=== PATIENT | female | born 1980 | race Caucasian/White ===

== ENCOUNTER 2020-02-28 15:41 | Outpatient (REF) | payer BC, SELFPAY ==
[2020-03-02 23:17] LABS: Patient Race White; SARS-CoV-2 RNA Undetected (Undetected); SARS-CoV-2 Specimen Source Nasal
== END 2020-02-28 16:01 ==
LOC: NCHCN 15:41
PROVIDERS: PCP Nurse Practitioner Family; Visit Provider Nurse Practitioner Family
DX: R05 Cough (principal)
CPT/HCPCS: U0003

== ENCOUNTER 2020-03-13 16:20 | Outpatient (REF) | payer BC, SELFPAY ==
[2020-03-13 20:46] LABS: Hemoglobin A1C 5.7 % (<5.7)
[2020-03-13 20:48] LABS: Anion Gap 9.3 mmol/L (3-11); BUN 6 mg/dL (7-18); CO2 25.7 mmol/L (21.0-32.0); CREATININE 0.74 mg/dL (0.55-1.02); Calcium 8.5 mg/dL (8.5-10.1); Chloride 104 mmol/L (98-107); Glucose 101 mg/dL (74-106); Potassium 3.8 mmol/L (3.5-5.1); Sodium 139 mmol/L (136-145); TSH (W/Ref FT4) 1.59 uIU/mL (0.36-3.74)
== END 2020-03-13 16:40 ==
LOC: NCHCN 16:20
PROVIDERS: PCP Nurse Practitioner Family; Visit Provider Nurse Practitioner Family
DX: R42 Dizziness and giddiness (principal)
CPT/HCPCS: 80048; 83036; 84443

== ENCOUNTER 2020-03-21 11:01 | Outpatient (REF) | payer BC, SELFPAY ==
[2020-03-23 18:50] LABS: SARS-CoV-2 RNA Source Nasal/Nares
[2020-03-23 18:52] LABS: SARS-CoV-2 RNA Detected (NotDetected)
== END 2020-03-21 11:21 ==
LOC: NCHCN 11:01
PROVIDERS: PCP Nurse Practitioner Family; Visit Provider Nurse Practitioner Family
DX: Z20.828 Contact with and (suspected) exposure to other viral communicable diseases (principal)
CPT/HCPCS: U0003

== ENCOUNTER 2020-09-10 13:39 | Outpatient (REF) | payer BC, SELFPAY ==
[2020-09-10 16:41] LABS: Anion Gap 9.8 mmol/L (3-11); BUN 6 mg/dL (7-18); CO2 26.2 mmol/L (21.0-32.0); CREATININE 0.7 mg/dL (0.55-1.02); Calcium 8.6 mg/dL (8.5-10.1); Chloride 107 mmol/L (98-107); Glucose 97 mg/dL (74-106); Potassium 4.1 mmol/L (3.5-5.1); Sodium 143 mmol/L (136-145)
== END 2020-09-10 13:40 | disposition home or self-care (01) ==
LOC: NCHCN 13:39
PROVIDERS: PCP Nurse Practitioner Family; Visit Provider Nurse Practitioner Family
DX: I10 Essential (primary) hypertension (principal)
CPT/HCPCS: 80048

== ENCOUNTER 2020-09-21 19:45 | Outpatient (REF) | payer BC, SELFPAY | END 2020-09-21 19:46 | disposition home or self-care (01) | LOC: NCHCN 19:45 | PROVIDERS: PCP Nurse Practitioner Family; Visit Provider Physician Assistant | DX: J02.9 Acute pharyngitis, unspecified (principal) | CPT/HCPCS: 87070 ==

== ENCOUNTER 2020-11-21 18:31 | Outpatient (REF) | payer BC, SELFPAY ==
[2020-11-21 19:57] LABS: Bilirubin Negative (Negative); Blood Small (Negative); Clarity Sl Cloudy (Clear); Glucose Negative (Negative); Ketones Negative (Negative); Leukocyte Esterase Negative (Negative); Nitrite Positive (Negative); Specific Gravity >= 1.030 (1.005-1.025); Urobilinogen 0.2 EU/dL (Up TO 0.2)
[2020-11-21 20:08] LABS: Bacteria Many HPF (Negative); C & S Indicated? C&S Done As Ordered; Casts Negative LPF (Negative); Crystals Mod Calcium Oxalate HPF (Negative); Epithelial Cells Few HPF (Negative); Mucus Trace (Negative)
== END 2020-11-21 18:32 | disposition home or self-care (01) ==
LOC: NCHCN 18:31
PROVIDERS: PCP Nurse Practitioner Family; Visit Provider Nurse Practitioner Family
DX: R30.0 Dysuria (principal)
CPT/HCPCS: 87077; 81003; 81015; 87086; 87186

== ENCOUNTER 2020-12-03 12:50 | Outpatient (REF) | payer BC, SELFPAY | END 2020-12-03 12:51 | disposition home or self-care (01) | LOC: NCHCN 12:50 | PROVIDERS: PCP Nurse Practitioner Family; Visit Provider Nurse Practitioner Family | DX: R30.0 Dysuria (principal) | CPT/HCPCS: 87077; 87086; 87186 ==

== ENCOUNTER 2021-03-01 13:13 | Outpatient (REF) | payer BC, SELFPAY ==
[2021-03-03 10:41] LABS: COVID-19 RT-PCR UVMMC Result Negative (Negative)
== END 2021-03-01 13:14 | disposition home or self-care (01) ==
LOC: NCHCN 13:13
PROVIDERS: PCP Nurse Practitioner Family; Visit Provider Physician Assistant
DX: Z20.822 Contact with and (suspected) exposure to COVID-19 (principal); J40 Bronchitis, not specified as acute or chronic
CPT/HCPCS: U0003

== ENCOUNTER 2021-04-05 09:17 | Outpatient (REF) | payer BC, SELFPAY ==
[2021-04-05 18:55] LABS: Hemoglobin A1C 5.6 % (<5.7)
[2021-04-05 19:06] LABS: ALT 25 U/L (14-59); AST 17 U/L (15-37); Albumin 3.8 g/dL (3.4-5.0); Alkaline Phosphatase 88 U/L (46-116); Anion Gap 10.8 mmol/L (3-11); BUN 9 mg/dL (7-18); Bilirubin, Total 0.2 mg/dL (0.2-1.0); CO2 25.2 mmol/L (21.0-32.0); CREATININE 0.6 mg/dL (0.55-1.02); Calcium 8.5 mg/dL (8.5-10.1); Chloride 105 mmol/L (98-107); Glucose 80 mg/dL (74-106); Potassium 3.7 mmol/L (3.5-5.1); Sodium 141 mmol/L (136-145); TSH 1.34 uIU/mL (0.36-3.74); Total Protein 6.9 g/dL (6.4-8.2)
== END 2021-04-05 09:18 | disposition home or self-care (01) ==
LOC: NCHCN 09:17
PROVIDERS: PCP Nurse Practitioner Family; Visit Provider Nurse Practitioner Family
DX: R63.5 Abnormal weight gain (principal)
CPT/HCPCS: 80053; 83036; 84443

== ENCOUNTER 2022-05-27 19:17 | Outpatient (REF) | payer OTHER, SELFPAY ==
[2022-05-27 19:05] LABS: ALT 17 U/L (14-59); AST 17 U/L (15-37); Albumin 3.9 g/dL (3.4-5.0); Alkaline Phosphatase 72 U/L (46-116); Anion Gap 8.3 mmol/L (3-11); BUN 8 mg/dL (7-18); Bilirubin, Total 0.2 mg/dL (0.2-1.0); CO2 25.7 mmol/L (21.0-32.0); CREATININE 0.7 mg/dL (0.55-1.02); Calcium 9.3 mg/dL (8.5-10.1); Calculated LDL 121 mg/dL (<100); Chloride 104 mmol/L (98-107); Cholesterol 183 mg/dL (<200); Estimated GFR 110.67 (mL/min/1.73m2); Glucose 98 mg/dL (74-106); HDL Cholesterol 45 mg/dL (40-60); Potassium 4.1 mmol/L (3.5-5.1); Sodium 138 mmol/L (136-145); TSH 1.57 uIU/mL (0.36-3.74); Total Protein 7.4 g/dL (6.4-8.2); Triglyceride 88 mg/dL (<150)
[2022-05-27 20:50] LABS: Hemoglobin A1C 6.1 % (<5.7)
== END 2022-05-27 19:18 | disposition home or self-care (01) ==
LOC: NCHCN 19:17
PROVIDERS: PCP Nurse Practitioner Family; Visit Provider Nurse Practitioner Family
DX: I10 Essential (primary) hypertension (principal); R73.09 Other abnormal glucose; H02.61 Xanthelasma of right upper eyelid; H02.64 Xanthelasma of left upper eyelid
CPT/HCPCS: 80053; 80061; 83036; 84443

== ENCOUNTER 2023-01-01 18:52 | Outpatient (REF) | payer OTHER, SELFPAY ==
[2023-01-01 19:47] LABS: COMMENT (LAB VIEW ONLY) 203.83 mg/dL; PROTEIN 13.8 mg/dL; Prot/Crea Ur Ratio 0.06
== END 2023-01-01 18:53 | disposition home or self-care (01) ==
LOC: NCHCN 18:52
PROVIDERS: PCP Nurse Practitioner Family; Visit Provider Nurse Practitioner Family
DX: I10 Essential (primary) hypertension (principal); E11.65 Type 2 diabetes mellitus with hyperglycemia
CPT/HCPCS: 82565; 84156

== ENCOUNTER 2023-01-07 11:30 | Outpatient (REF) | payer OTHER, SELFPAY ==
[2023-01-07 20:57] LABS: Anion Gap 8.2 mmol/L (3-11); BUN 9 mg/dL (7-18); CO2 23.8 mmol/L (21.0-32.0); CREATININE 0.7 mg/dL (0.55-1.02); Calcium 8.6 mg/dL (8.5-10.1); Chloride 104 mmol/L (98-107); Estimated GFR 110.67 (mL/min/1.73m2); Glucose 146 mg/dL (74-106); Potassium 4.1 mmol/L (3.5-5.1); Sodium 136 mmol/L (136-145)
== END 2023-01-07 11:31 | disposition home or self-care (01) ==
LOC: NCHCN 11:30
PROVIDERS: PCP Nurse Practitioner Family; Visit Provider Nurse Practitioner Family
DX: I10 Essential (primary) hypertension (principal); E11.65 Type 2 diabetes mellitus with hyperglycemia
CPT/HCPCS: 80048

== ENCOUNTER 2023-10-05 12:31 | Outpatient (REF) | payer OTHER, SELFPAY ==
[2023-10-05 19:15] LABS: HCT 45.6 % (36.0-46.0); HGB 14.7 g/dL (11.2-15.7); MCH 25.5 pg (27.0-33.0); MCHC 32.2 % (32.0-36.0); MCV 79 fL (80-95); MPV 11.7 fL (8.0-11.0); Platelet Count 253 10^3/uL (130-400); RBC 5.76 10^6/uL (3.93-5.22); RDW 14.1 % (11.7-14.6); RDW-SD 40.5 fL; WBC 7.17 10^3/uL (4.4-10.8)
== END 2023-10-05 12:32 | disposition home or self-care (01) ==
LOC: NCHCN 12:31
PROVIDERS: PCP Nurse Practitioner Family; Visit Provider Nurse Practitioner Family
DX: K62.5 Hemorrhage of anus and rectum (principal)
CPT/HCPCS: 85027

== ENCOUNTER 2023-10-11 22:35 | Emergency (ER) | payer OTHER, SELFPAY ==
[2023-10-11 22:41] VITALS: BP 189/114; PULSE 91; RESP 16; TEMP 36.7; O2SAT 100
[2023-10-11 22:42] VITALS: BP 189/114; PULSE 85; O2SAT 99
[2023-10-11 22:45] VITALS: BP 211/93; PULSE 88
--- NOTE | 2023-10-11 22:45 | DI.CT_ITS ---
Exam(s) CT ABDOMEN PELVIS W EXAM: CT ABDOMEN PELVIS W CLINICAL HISTORY: pelvic and lower abdominal pain w/ rectal bleeding. TECHNIQUE: Imaging Protocol: Axial computed tomography images with coronal and sagittal reformatted images were created and reviewed CONTRAST MATERIAL: Intravenous: Omnipaque-350 100cc Oral: None COMPARISON: No exams were available for comparison FINDINGS: VISUALIZED LUNG BASES: No nodules nor pleural effusions evident. ABDOMEN: There is no ascites. LIVER: In the anterior aspect of the right hepatic lobe there is a subcapsular hypodense lesion measu ring approximately 3.5 x 1.5 cm. No other focal hepatic lesions. No dilated intrahepatic ducts. GALLBLADDER/BILIARY: The gallbladder surgically absent. CBD is not dilated. PANCREAS: No evidence of pancreatic mass nor dilatation of the pancreatic duct. SPLEEN: Spleen is not enlarged. No obvious intrasplenic lesions. Splenic and portal veins are paten t. ADRENALS: There are no significant adrenal masses. KIDNEYS:No cysts evident. No solid renal masses. No calculi nor hydronephrosis.. ABDOMINAL AORTA: Abdominal aorta is not enlarged. LYMPH NODES:There is no retroperitoneal nor paraaortic adenopathy. ABDOMINAL WALL: No evidence of significant anterior abdominal wall nor inguinal hernia. GI: There is no evidence of bowel obstruction, free air, nor abscess. PELVIS: GI: Appendix is not seen and may be surgically absent. No evidence of appendicitis.No evidence of si gmoid diverticulitis.No obvious colitis pattern. LYMPH NODES: There is no intrapelvic nor inguinal adenopathy. REPRODUCTIVE: Uterus and adnexal regions appear unremarkable. There is no free fluid in the pelvis. URINARY BLADDER: No calculi nor obvious masses evident OSSEOUS: No fractures and no significant osseous lesions. IMPRESSION: 1. There is a solitary subcapsular lesion in the anterior aspect the right hepatic lobe which measure s approximately 3.5 x 1.5 cm. Possibly hemangioma but cannot exclude more concerning pathology. Rec ommend follow-up contrast infused MRI of the abdomen using liver hemangioma protocol. 2. Gallbladder surgically absent. The biliary tree is not dilated. First read by [facility] Final report called by myself to ER physician 10/12/2023 9:10 a.m. RADIATION DOSE DELIVERED: 1,433.68mGy.cm Total DLP DATA REPOSITORY: All CT scans at this facility are submitted to the National Radiology Data Registry (NRDR) Dose Index Registry (DIR) with the [employer] (A[employer]). RADIATION OPTIMIZATION: All CT scans at this facility use at least one of these dose optimization te chniques: automated exposure control; mA and/or kV adjustment per patient size (includes targeted exa ms where dose is matched to clinical indication); or iterative reconstruction.
--- NOTE | 2023-10-11 22:54 | ED.GENADUL_ITS ---
Discharge Plan Disposition Patient Disposition: Home Condition: Good Discharge Details Chief Complaint: GenMedical Clinical Impression: Rectal bleeding Primary Care Provider: Cortney Mendiola ED Provider: Mitchell Yu Home Meds and New Rx's Prescriptions: No Action hydrochlorothiazide 12.5 mg tablet 12.5 mg PO DAILY Patient Comments: TAKE ONE TABLET BY MOUTH EVERY DAY Nexplanon 68 mg implant 1 implant subdermal ONCE Rx Instructions: as a single dose Discharge Instructions Instructions: Rectal Bleeding (ED) Additional Instructions: At this time your hemoglobin levels are normal, your blood tests are stable. Your CAT scan shows no evidence of tumor, mass, diverticulitis. I am concerned that you have potential mild bleeding from an internal hemorrhoid that we could not feel or from mild diverticulosis. However you still need a colonoscopy to definitively evaluate the bleeding scenario. Please follow-up closely with your surgeon for this. Please keep your stools soft, drink 8 to 10 cups of water per day. Take your daily MiraLAX that you are prescribed by your primary care provider. If you notice any worsening of your symptoms, or any new symptoms such as vomiting, diarrhea, fever, chills, shortness of breath, chest pain, numbness, weakness, or fainting , please return immediately to the emergency department for reevaluation. Please follow up with your primary care provider as soon as possible for reassessment and reevaluation. As always, it was a pleasure participating in your medical care today. Referrals: Cortney Mendiola NP [Primary Care Provider] - Max Walker MD [ [facility] STAFF PHYSICIAN] - [facility] General Date/Time Provider Initiated Documentation: 10/11/23 22:39 . HPI Narrative: 43-year-old female with past medical history of cholecystectomy, 2 C- sections, previous post incisional site hernia with repair, who presents today for rectal bleeding. Patient states that this is the third oc currence, first happened exactly 30 days ago which was a small amount of mucus- like clots, no pain. The second episode was on the third of this month which was 6 days ago which was also some clots and mucus. Today it occurred with some gas, and it was bright red blood. None of the episodes have occurred with stool. All have been painless. No burning or searing sensation. Patient denies any anal intercourse or rectal foreign bodies. She denies any nausea vomiting or diarrhea. Patient does admit to some mild abdominal achiness that has been present today. She has not had any other symptoms or complaints today. She did feel slightly bloated after eating a dessert earlier today and has felt bloated throughout the majority of the day. Family history is positive for diverticulitis, but no history of ulcerative colitis colon cancer or Crohn's disease. There is some concern for family history of IBS. Patient has no other complaints at this time. She is not on any anticoagulants. No known history of bleeding diatheses. No known history of hemorrhoids. Related Data Home Medications Medication Instructions Recorded Confirmed etonogestrel 68 mg subdermal 1 implant subdermal ONCE 10/11/23 10/11/23 implant (Nexplanon) hydrochlorothiazide 12.5 mg tablet 12.5 mg PO DAILY 10/11/23 10/11/23 Allergies Allergy/AdvReac Type Severity Reaction Status Date / Time latex Allergy Swelling/Ed Verified 10/11/23 23:52 brandy Penicillins Allergy Anaphylaxis Verified 10/11/23 23:52 General Stated Complaint: GenMedical DIANA: 3 Review of Systems All systems reviewed & are unremarkable except as noted in HPI and below Exam Narrative Exam Narrative: 1.Const: Well-nourished, Well-developed, appearing stated age 2.Eyes: PERRL, no conjunctival injection, and symmetrical lids. 3.ENT: Atraumatic external nose and ears. Moist MM. Neck: Symmetric, trachea midline, No thyromegaly. 4.CVS: +S1/S2, No murmurs or gallops. Peripheral pulses 2+ and equal in all extremities. Brisk capillary refill in all extremities. 5.RESP: Unlabored respiratory effort. Clear to auscultation bilaterally. No wheezes rales or rhonchi 6.GI: Soft, nondistended. No guarding or rebound. Mild tenderness in the lower abdominal/pelvic region on the left right and mid. No pain to McBurney's point, negative Elizabeth sign. 7.MSK: Normocephalic/Atraumatic, Extremities w/o deformity or ttp No cyanosis or clubbing, Normal movement of all extremities 8.Skin: Warm, Dry. No rashes or lesions. 9.Neuro: vitamin manager II-XII grossly intact. Sensation grossly intact, no focal neurologic deficits. 10.Psych: (AAO) x3. Appropriate mood and affect Course Vital Signs Vital signs: Vital Signs Temperature 36.7 C 10/11/23 22:41 Pulse 91 H 10/11/23 22:41 Respiratory Rate 16 10/11/23 22:41 Blood Pressure 189/114 H 10/11/23 22:41 Pulse Oximetry 100 10/11/23 22:41 Temperature 36.7 C 10/11/23 22:41 Pulse 91 H 10/11/23 22:41 Respiratory Rate 16 10/11/23 22:41 Blood Pressure 189/114 H 10/11/23 22:41 Pulse Oximetry 100 10/11/23 22:41 Oxygen Delivery Method Room Air 10/11/23 22:41 Oxygen Flow Rate 0 10/11/23 22:41 Medical Decision Making 43-year-old female with past medical history of cholecystectomy, 2 C- sections, previous post incisional site hernia with repair, who presents today for rectal bleeding. Patient states that this is the third occurrence, first happened exactly 30 days ago which was a small amount of mucus-like clots, no pain. The second episode was on the third of this month which was 6 days ago which was also some clots and mucus. Today it occurred with some gas, and it was bright red blood. None of the episodes have occurred with stool. All have been painless. No burning or searing sensation. Patient denies any anal intercourse or rectal foreign bodies. She denies any nausea vomiting or diarrhea. Patient does admit to some mild abdominal achiness that has been present today. She has not had any other symptoms or complaints today. She did feel slightly bloated after eating a dessert earlier today and has felt bloated throughout the majority of the day. Family history is positive for diverticulitis, but no history of ulcerative colitis colon cancer or Crohn's disease. There is some concern for family history of IBS. Patient has no other complaints at this time. She is not on any anticoagulants. No known history of bleeding diatheses. No known history of hemorrhoids. Exam demonstrates well-appearing female, mild abdominal achiness in the pelvic and lower abdominal region. Concern for diverticulitis, diverticulosis, colon cancer, bleeding polyp, proctitis, and potential hemorrhoid. Will get blood work to evaluate for coagulation abnormalities, thrombocytopenia, or other atypical causes. We will check hemoglobin level. Will get a CT scan to rule out infectious or inflammatory or masslike process. Will monitor closely and reassess. We will perform rectal exam once patient is changed and female nurse can be at bedside. 12:35 AM Laboratory has returned unremarkable, hemoglobin notably stable. CT scan negative for acute process. Rectal exam was performed with female nurse Jennifer at bedside. No active bleeding. There was what appears to be a small lipoma on 1 gluteal cleft, and another potentially old varicocele or lipoma on the other. These are chronic. No large hemorrhoids otherwise. No active bleeding on rectal exam. Hemoccult negative. No large internal hemorrhoid that I can palpate. No mass or tenderness. Patient is otherwise hemodynamically stable. Suspect either an internal hemorrhoid that I cannot palpate or potential mild diverticular bleed which appears to be relatively benign at this stage. Polyp may certainly have caused this bleeding as well, and we will still encourage continued follow-up at her scheduled colonoscopy appointment. Patient otherwise stable for discharge. She has MiraLAX that was prescribed by her PCP. Will recommend continue taking this, drinking 8 to 10 cups of water at minimum per da y. And keeping her stool soft. Discussed red flags which to return. I have extensively reviewed the treatment plan and discharge instructions with the patient. I have addressed all patient concerns at this time. The patient was made aware of what symptoms to monitor for that would warrant a return to the emergency department. Discussed the plan with the patient, they demonstrate verbal understanding and agreement with our assessment and plan at this time. The documentation in this chart was dictated using [employer] dictation software. Please excuse any dictation errors. FINDINGS: Liver: Normal. No mass. Gallbladder and bile ducts: Status post cholecystectomy. Pancreas: Normal. No ductal dilation. Spleen: Normal. No splenomegaly. Adrenal glands: Normal. No mass. Kidneys and ureters: Normal. No hydronephrosis. Stomach and bowel: Unremarkable. No obstruction. No mucosal thickening. Appendix: No evidence of appendicitis. Intraperitoneal space: Unremarkable. No free air. No significant fluid collection. Vasculature: Unremarkable. No abdominal aortic aneurysm. Lymph nodes: Unremarkable. No enlarged lymph nodes. Urinary bladder: Unremarkable as visualized. Reproductive: Unremarkable as visualized. Bones/joints: Unremarkable. No acute fracture. Soft tissues: Fat containing midline anterior pelvic wall ventral hernia. IMPRESSION: No acute finding. Thank you for allowing us to participate in the care of your patient. Dictated and Authenticated by: Tomasz Jaquez MD 10/12/2023 12:06 AM Eastern Time ([place] & [place]) Quality:SDOH Health Related Social Needs: No Data to Display PFSH All Active Problems (Updated 10/12/23 @ 00:35 by Mitchell Yu DO) Rectal bleeding (Acute) Sebaceous cyst (Acute) BMI 40.0-44.9, adult (Acute) Incisional hernia (Acute) Varicose vein of leg (Acute) Palpitations (Acute) Hypertension, benign essential, age 0-18 (Acute) Tobacco use disorder (Acute) Adjustment disorder with mixed anxiety and depressed mood (Acute) Personal history of COVID-19 (Acute) Knee pain, left (Acute) Pharyngitis, acute (Acute) Social History Smoking/Tobacco Use Status: Current every day Tobacco Type: e-cigarettes Smoking risk assessment performed?: Yes Alcohol Intake: current Alcohol Intake frequency: holidays/special occasions only Drug use: Never Substance use type: does not use
[2023-10-11] MEDS: Omnipaque 350 MG/ML 100 ML BTL IJ (23:03)
[2023-10-11] MEDS: Normal Saline - Diluent 50 ML VIAL IJ (23:03)
[2023-10-11 23:10] LABS: Abs Immature Grans 0.04 10^3/uL (0.0-0.06); Absolute Basophil Count 0.04 10^3/uL (0.0-0.2); Absolute Eosinophil Count 0.11 10^3/uL (0.0-0.7); Absolute Lymphocyte Count 2.25 10^3/uL (1.2-3.4); Absolute Monocyte Count 0.55 10^3/uL (0.1-0.8); Basophils % 0.4 %; HCT 45.4 % (36.0-46.0); HGB 14.3 g/dL (11.2-15.7); Immature Grans % 0.4 %; Lymphocytes % 20.1 %; MCH 25.7 pg (27.0-33.0); MCHC 31.5 % (32.0-36.0); MCV 82 fL (80-95); MPV 10.7 fL (8.0-11.0); Monocytes % 4.9 %; Neutrophils % 73.2 %; Platelet Count 244 10^3/uL (130-400); RBC 5.56 10^6/uL (3.93-5.22); RDW 14.1 % (11.7-14.6); RDW-SD 41.4 fL; WBC 11.18 10^3/uL (4.4-10.8)
[2023-10-11] MEDS: Normal Saline Flush 10 ML SYR IVP (23:10)
[2023-10-11 23:11] LABS: Absolute Neutrophil Count 8.18 10^3/uL (1.2-6.7)
[2023-10-11 23:23] LABS: PTT Activated 25.9 sec (23.6-32.8); Prothrombin Time 9.8 sec (9.1-11.1)
[2023-10-11 23:37] LABS: ALT 26 U/L (14-59); AST 15 U/L (15-37); Albumin 3.7 g/dL (3.4-5.0); Alkaline Phosphatase 90 U/L (46-116); Anion Gap 11.1 mmol/L (3-11); BUN 10 mg/dL (7-18); Bilirubin, Total 0.2 mg/dL (0.2-1.0); CO2 25.9 mmol/L (21.0-32.0); CREATININE 0.7 mg/dL (0.55-1.02); Calcium 8.9 mg/dL (8.5-10.1); Chloride 102 mmol/L (98-107); Estimated GFR 109.98 (mL/min/1.73m2); Glucose 109 mg/dL (74-106); Potassium 3.4 mmol/L (3.5-5.1); Sodium 139 mmol/L (136-145); Total Protein 7.4 g/dL (6.4-8.2)
[2023-10-11] MEDS: Normal Saline 1,000 ML 1000 ML IV (23:38)
[2023-10-11 23:55] VITALS: RESP 16
--- NOTE | 2023-10-12 00:07 | DI.VRAD_ITS ---
PROCEDURE INFORMATION: Exam: CT Abdomen And Pelvis With Contrast Exam date and time: 10/11/2023 11:09 PM Age: 43 years old Clinical indication: Localized; Prior surgery; Surgery date: 6+ months; Surgery type: 2 c-sections, cholecystectomy; Patient HX: Pelvic and lower abdominal pain w/ rectal bleeding TECHNIQUE: Imaging protocol: Computed tomography of the abdomen and pelvis with contrast. Radiation optimization: All CT scans at this facility use at least one of these dose optimization techniques: automated exposure control; mA and/or kV adjustment per patient size (includes targeted exams where dose is matched to clinical indication); or iterative reconstruction. Contrast material: OMNIPAQUE 350; Contrast volume: 100 ml; Contrast route: INTRAVENOUS (IV); COMPARISON: No relevant prior studies available. FINDINGS: Liver: Normal. No mass. Gallbladder and bile ducts: Status post cholecystectomy. Pancreas: Normal. No ductal dilation. Spleen: Normal. No splenomegaly. Adrenal glands: Normal. No mass. Kidneys and ureters: Normal. No hydronephrosis. Stomach and bowel: Unremarkable. No obstruction. No mucosal thickening. Appendix: No evidence of appendicitis. Intraperitoneal space: Unremarkable. No free air. No significant fluid collection. Vasculature: Unremarkable. No abdominal aortic aneurysm. Lymph nodes: Unremarkable. No enlarged lymph nodes. Urinary bladder: Unremarkable as visualized. Reproductive: Unremarkable as visualized. Bones/joints: Unremarkable. No acute fracture. Soft tissues: Fat containing midline anterior pelvic wall ventral hernia. IMPRESSION: No acute finding. Dictated and Authenticated by: Tomasz Jaquez MD. Ordering:JAMES Medrano MD
[2023-10-12 00:47] VITALS: BP 186/90; PULSE 86; RESP 14; O2SAT 99
--- NOTE | 2023-10-12 09:30 | W.ED.FU ---
Date of service: 10/12/23 Time of Service: 09:31 Follow Up Plan: Subcapsular lesion 1.5 x 3.[address] scan abdomen. Over read called this morning to ED. I was able to contact patient and relay findings from CT scan. Recommending close follow-up on outpatient basis with primary care physician to perform further imaging to delineate liver findings. Radiology recommending follow-up contrast infused MRI using a liver hemangioma protocol. Patient given return precautions for any worsening symptoms.
== END 2023-10-12 00:47 | disposition home or self-care (01) ==
LOC: ER 10-12 00:56
PROVIDERS: Emergency Provider Student in an Organized Health Care Education/Training Program; PCP Nurse Practitioner Family
DX: K62.5 Hemorrhage of anus and rectum (principal); K76.9 Liver disease, unspecified; I10 Essential (primary) hypertension; F17.290 Nicotine dependence, other tobacco product, uncomplicated
CPT/HCPCS: 80053; 86850; 86900; 86901; 96360; 99285; 74177; 85025; 85610; 85730; 99284; J3490

== ENCOUNTER 2023-10-26 11:17 | Day surgery (SDC) | payer OTHER, SELFPAY ==
--- NOTE | 2023-10-25 19:39 | PDOC.DSDIS_ITS ---
Date of service: 10/26/23 Time of Service: 13:44 Discharge Plan Disposition Patient Disposition: Home Condition: Good Discharge Details Reason For Visit: colonoscopy Attending Provider: Max Walker Primary Care Provider: Isabel Gregg Home Meds and New Rx's Prescriptions: Continued polyethylene glycol 3350 [Miralax] 17 gram/dose powder 8.5 g PO HS PRN hydrochlorothiazide 12.5 mg tablet 12.5 mg PO DAILY Patient Comments: TAKE ONE TABLET BY MOUTH EVERY DAY Nexplanon 68 mg implant 1 implant subdermal ONCE Rx Instructions: as a single dose Discontinued bisacodyl [Dulcolax (bisacodyl)] 5 mg tablet,delayed release (DR/EC) 5 mg PO ONCE Qty: 4 0RF Rx Instructions: Take per colonoscopy instructions provided by ordering providers office polyethylene glycol 3350 17 gram/dose powder 17 g PO ONCE Qty: 238 0RF Rx Instructions: Take per colonoscopy instructions provided by ordering providers office No Action psyllium husk (aspartame) [Metamucil Sugar-Free (aspart)] PO HS Discharge Instructions Instructions: Colon polyps Additional Instructions: Annabelle, we are able to complete your colonoscopy today without much difficulty. There are no internal hemorrhoids. I did find and remove several polyps today. Majority of these are pretty typical appearing, however, he did have 1 large polyp, that was quite friable. I suspect that this is the source of your blee ding. In addition to the smaller polyps, I did remove the larger polyp as well. So in total, I removed 6 polyps. All of these will be sent off for testing, and once we know the nature of the polyps, I will be in touch with any other recommendations. If you have any questions or concerns in the meantime, please do not hesitate to call or ask. It usually takes about a week or 2 for me to get the results of the polyp report. As soon as I have them I we will give you a call. 1. If tolerated, consume a soft, low fiber diet for 1-2 days. 2. Do not drive, drink alcohol, operate machinery, make critical decisions, or do activities that require coordination or balance for 24 hours. 3. Because air was put into your colon during the procedure, expelling air from your rectum (passing gas or farting) is normal. 4. You may not have a bowel movement for 1-3 days because of the colonoscopy prep. This is normal. 5. Go directly to the emergency room if you notice any of the following: Develop chills (warm to touch), or if you have a thermometer and your temperature is above 101 Difficulty breathing or difficultly swallowing Persistent vomiting Severe abdominal pain, other than gas cramps Severe chest pain Black, tarry stools Any bleeding ? exceeding one tablespoon 6. Call your physician if the site where your intravenous was started becomes red, swollen, painful, and warm to touch. 7. Your physician has reviewed your pre-procedure medications. Please continue to take those medications as previously ordered. You will be given specific information/education regarding any changes to your medications before leaving. Activity:: Activity as Tolerated Diet:: As Tolerated Discharge Orders Discharge Orders: Discharge Order (Routine); Ordered 10/25/23 Ordered By: Max Walker DS: Diagnosis Discharge Diagnosis (1) Rectal bleeding: Status: Acute Asessment and Plan: Follow-up on polypectomy results
--- NOTE | 2023-10-25 19:41 | W.COLOREPORT ---
Date of service: 10/26/23 Time of Service: 13:47 Colonoscopy Report Date of procedure: 10/26/23 Pre-op diagnosis general: Hematochezia Post-op diagnosis procedure note: other (Colon and rectal polyps) Procedure: Colonoscopy with polypectomy Surgeon: Max Walker Anesthesia Type: General:No Airway Estimated blood loss (mL): 10 Pathology: other (0.25 cm rectal polyp, 0.5 cm rectal polyp, 3 cm polyp at 45 cm, 0.25 cm polyp at 70 cm, 0.5 cm polyp at 65 cm, 0.25 cm polyp at 25 cm) Complications: None Disposition: same day Indications: Annabelle is a 43 year old woman who experianced rectal bleeding of unknown etiology. She is undergoing diagnostic colonoscopy Prep: Miralax/Dulcolax Procedure Start Time: 12:57 Procedure End Time: 13:31 Retraction Time: 16 Findings: 0.25 cm rectal polyp, 0.5 cm rectal polyp, 3 cm polyp at 45 cm, 0.25 cm polyp at 70 cm, 0.5 cm polyp at 65 cm, 0.25 cm polyp at 25 cm Procedure Description: After the induction of anesthesia, and with the patient in left lateral decubitus position, I began by performing an external anorectal exam.? Perineum and skin were normal, as was the anal verge.? There was no evidence of external hemorrhoids.? Next, I performed a digital rectal exam.? I did not appreciate any abnormal findings.? Next, I advanced a colonoscope into the rectal vault.? I performed retroflexion.? This was normal.? Using insufflation, I then advanced the colonoscope beyond the rectal folds and into the sigmoid colon before advancing towards the cecum.? Around 45 cm from the anal verge was a large pedunculated polyp. Mucosa overlying the polyp tissue was quite erythematous and friable. This polyp was removed with a energize snare polypectomy. There was minimal bleeding. I continued advancing the colonoscope.? The scope was noted to be in the cecum by identification of the ileocecal valve and appendiceal orifice.? I then began withdrawing the colonoscope using repeated irrigation as necessary for full evaluation of the colonic mucosa. Around 70 cm from the anal verge was a 0.25 cm flat polyp. This was removed with cold forceps without any significant bleeding. Another polyp was found at 65 cm. This was about 0.5 cm, and mostly flat. This was removed with cold snare polypectomy. A 0.25 cm flat polyp was found at 25 cm. This was removed with cold forceps. Once the scope was withdrawn to the level of the rectum, great care was taken to examine portions of the rectal folds.? In the midportion of the rectum or 2 more polyps. 1 was 0.25 cm and flat. The other was about 0.5 cm, slightly elevated. The smaller of the 2 was removed with cold forceps without any worrisome bleeding, and the larger was removed with cold snare polypectomy. Finally, the scope was withdrawn and the patient was brought to the same-day surgery recovery unit as the anesthetic wore off. ?The findings and instructions were shared with the patient prior to discharge. [place] Bowel Prep [place] Bowel Prep Right Colon: 3 Left Colon: 3 Transverse Colon: 3 Total Score: 9
[2023-10-26 11:40] VITALS: BP 134/75; PULSE 94; RESP 20; TEMP 36.6; O2SAT 100
--- NOTE | 2023-10-26 12:37 | W.ANESPRE ---
General Info Date of Service Date Performed: 10/26/23 Height: 5 ft 7 in Weight: 117.3 kg Body Mass Index (BMI): 40.5 Surgical Procedure: Operation Date: 10/26/23 13:40 Proposed Procedure Side Surgeon p Colonoscopy Max Walker MD s Possible Internal Hemorrhoid Banding Max Walker MD Meds Allergies and Home Medications Allergies Allergy/AdvReac Type Severity Reaction Status Date / Time latex Allergy Swelling/Ed Verified 10/26/23 12:15 brandy Penicillins Allergy Anaphylaxis Verified 10/26/23 12:15 Home Medication Medication Instructions Recorded etonogestrel 68 mg subdermal 1 implant subdermal ONCE 10/11/23 implant (Nexplanon) hydrochlorothiazide 12.5 mg tablet 12.5 mg PO DAILY 10/11/23 polyethylene glycol 3350 17 8.5 g PO HS PRN 10/22/23 gram/dose oral powder (Miralax) psyllium husk (aspartame) PO HS 10/26/23 Current Visit Medications: Current Medications Generic Name Dose Route Start Last Admin Trade Name Freq PRN Reason Stop Dose Admin Hyoscyamine Sulfate 0.125 mg 10/25/23 19:42 Hyoscyamine 0.125 Mg Sl/Oral/Chew SL 11/24/23 19:41 DIRECTED PRN Ringer's Solution 1,000 mls @ 80 mls/hr 10/26/23 06:00 IV 11/22/23 23:59 INFUSION HERNANDO IV Miscellaneous Supplies 1 each 10/26/23 06:00 Iv Access IV 11/22/23 23:59 DIRECTED HERNANDO Ondansetron HCl 4 mg 10/25/23 19:42 Ondansetron 4 Mg/2 Ml Vial IVP 11/24/23 19:41 Q4H PRN PRN Nausea / Vomiting Sodium Chloride 0 ml 10/26/23 06:00 Normal Saline Flush 10 Ml Syr IV 11/22/23 23:59 PRN PRN Sodium Chloride 0 ml 10/26/23 06:00 Normal Saline 10 Ml Vial IJ 11/22/23 23:59 DIRECTED PRN Sterile Water 0 ml 10/26/23 06:00 Water,Injection,Sterile 10 Ml Vial IJ 11/22/23 23:59 DIRECTED PRN PFSH Active Problems Active Problems: Problem Status Onset Code Rectal bleeding K62.5 Sebaceous cyst L72.3 BMI 40.0-44.9, adult Z68.41 Incisional hernia K43.2 Varicose vein of leg I83.90 Palpitations R00.2 Hypertension, benign essential, age 0-18 I10 Tobacco use disorder F17.200 Adjustment disorder with mixed anxiety and depressed mood F43.23 Personal history of COVID-19 Z86.16 Knee pain, left M25.562 Pharyngitis, acute J02.9 Medical History Medical History (Updated 10/26/23 @ 12:23 by Charmaine Dominguez) PONV (postoperative nausea and vomiting) Surgical History Surgical History (Updated 10/22/23 @ 14:12 by Madhav Williamson) Hx of section x2 History of repair of ACL Hx of vein stripping Hx of cholecystectomy Tobacco Smoking/Tobacco Use Status: Current every day Tobacco Type: e-cigarettes Alcohol Alcohol Intake: current Alcohol intake frequency: a few times a month Substance Use Substance use: Occasionally Substance use type: marijuana Vital Signs and Lab Results Vital Signs Most Recent Vital Signs in EMR: Most Recent Vital Signs Temp Pulse Resp BP Pulse Ox 36.6 C 94 H 20 134/75 100 10/26/23 11:40 10/26/23 11:40 10/26/23 11:40 10/26/23 11:40 10/26/23 11:40 Lab Results Blood Type / Crossmatch: Antibody Screen NEGATIVE 10/11/23 Complete Blood Count: White Blood Count 11.18 10^3/uL (4.4-10.8) H 10/11/23 23:00 Red Blood Count 5.56 10^6/uL (3.93-5.22) H 10/11/23 23:00 Hemoglobin 14.3 g/dL (11.2-15.7) 10/11/23 23:00 Hematocrit 45.4 % (36.0-46.0) 10/11/23 23:00 Platelet Count 244 10^3/uL (130-400) 10/11/23 23:00 Complete Metabolic Panel: Sodium 139 mmol/L (136-145) 10/11/23 23:00 Potassium 3.4 mmol/L (3.5-5.1) L 10/11/23 23:00 Chloride 102 mmol/L (98-107) 10/11/23 23:00 Carbon Dioxide 25.9 mmol/L (21.0-32.0) 10/11/23 23:00 BUN 10 mg/dL (7-18) 10/11/23 23:00 Creatinine 0.7 mg/dL (0.55-1.02) 10/11/23 23:00 Est GFR (CKD-EPI 2020) 109.98 (mL/min/1.73m2) 10/11/23 23:00 Calcium 8.9 mg/dL (8.5-10.1) 10/11/23 23:00 Albumin 3.7 g/dL (3.4-5.0) 10/11/23 23:00 Glucose 109 mg/dL (74-106) H 10/11/23 23:00 Liver Function Panel: Alanine Aminotransferase (ALT/SGPT) 26 U/L (14-59) 10/11/23 23:00 Aspartate Amino Transf (AST/SGOT) 15 U/L (15-37) 10/11/23 23:00 Coagulation Panel: INR International Normalized Ratio 1.0 (0.9-1.1) 10/11/23 23:00 Prothrombin Time 9.8 sec (9.1-11.1) 10/11/23 23:00 Activated Partial Thromboplast Time 25.9 sec (23.6-32.8) 10/11/23 23:00 Cardiac Panel: No Data to Display Arterial Blood Gas: No Data to Display Venous Blood Gas: No Data to Display Pancreas Panel: No Data to Display Thyroid Panel: No Data to Display Infectious Disease: No Data to Display Blood Cultures: No Data to Display Toxicology Panel: No Data to Display Panel: No Data to Display Anesthesia Assessment and Plan Anesthesia History Personal History: PONV Family History: No Family History of Anesthesia Complications Exercise Tolerance Exercise Tolerance: Metabolic Equivalents>4 Pertinent Negatives Pertinent Negatives: No Symptoms of GERD, No Major Cardiovascular Symptoms or Complaints, No Major Pulmonary Symptoms or Complaints and No History of CVA/TIA Cardiac & Pulmonary Exam Cardiac Exam: Normal S1/S2 Heart Sounds Pulmonary Exam: Clear Bilateral Breath Sounds Implantable Cardiac Device Does patient have a Pacemaker or an ICD?: No Airway Exam Known Difficult Airway: No Mallampati Class: 1 Mouth Opening: Normal (> 3cm) Thyromental Distance: Greater than 3 cm Neck Range of Motion: Full ROM Neck Circumference: Normal Teeth Condition: Normal Dentition ASA Classification ASA Score: ASA 3 Emergency Case?: No NPO Status NPO Status: NPO Clears >2 hours, Solids >8 hours Status Status: Negative HCG Anesthesia Plan Resuscitation Status: Full Code Anesthesia Technique: General Anesthesia Airway Planned: Natural Airway Monitors Used: Standard Monitors
[2023-10-26 12:39] VITALS: BMI 40.5
[2023-10-26] MEDS: Lactated Ringers 1,000 ML 80 ML IV (12:45)
--- NOTE | 2023-10-26 12:59 | BOWEL_PTH ---
PATIENT: Annabelle Anderson LOC: [facility] U#:[id number] AGE/SX: 43/F ROOM: RE10/26/[address]: Max Walker MD : 1980 BED: DIS: 10/26/2023 SPEC #: [id number] RECD: 10/26/23 18:00 STATUS: [facility] #: [id number] JOSE: 10/26/23 12:[address]: Max Walker DEPT: Surgical Specimen RECD BY: Deepika Peterson ENTERED: 10/26/23 18:01 SP TYPE: Bowel OTHR DR: Marietta Gregg Tissues: 1 - BIOPSY BOWEL 2 - BIOPSY BOWEL 3 - BIOPSY BOWEL 4 - BIOPSY BOWEL 5 - BIOPSY BOWEL 6 - BIOPSY BOWEL Procedures: GROSS AND MICRO LEVEL 4 Comments: [id number]
[2023-10-26 13:36] VITALS: BP 126/86; PULSE 86; RESP 16; TEMP 36.4; O2SAT 99
[2023-10-26 14:01] VITALS: BP 136/93; PULSE 70; RESP 16; TEMP 36.6; O2SAT 99
--- NOTE | 2023-10-26 14:04 | W.ANESPOSTOP ---
Postoperative Evaluation Date, Time and Location Date Performed: 10/26/23 Time Performed: 14:04 Patient Location: Day [facility] Unit Vital Signs Most Recent Imported Vital Signs: Most Recent Vital Signs Temp Pulse Resp BP Pulse Ox 36.6 C 70 16 136/93 H 99 10/26/23 14:01 10/26/23 14:01 10/26/23 14:01 10/26/23 14:01 10/26/23 14:01 Pain Score Most Recent Pain Score: Most Recent Pain Score Pain Level 0 10/26/23 14:01 Assessment Mental Status: Awake (Alert & Oriented to Patient Baseline) Airway and Respiratory Function: Patent airway with normal (patient baseline) respiratory exam Cardiovascular Function: Hemodynamically Stable Hydration Status: Adequately Hydrated Nausea & Vomiting: No Nausea or Vomiting Pain: Pt. Denies Any Pain Peripheral Nerve Block: Patient did not receive a nerve block
== END 2023-10-26 14:14 | disposition home or self-care (01) ==
LOC: SUR 11:18
PROVIDERS: PCP Nurse Practitioner Family; Visit Provider Surgery
PROC: 0DJD8ZZ Inspection of Lower Intestinal Tract, Via Natural or Artificial Opening Endoscopic (ICD-10-PCS; CPT 45378; principal; 2023-10-26 13:30)
DX: K62.5 Hemorrhage of anus and rectum (principal); I10 Essential (primary) hypertension; D37.4 Neoplasm of uncertain behavior of colon; D12.8 Benign neoplasm of rectum; D12.4 Benign neoplasm of descending colon
CPT/HCPCS: 45385; 45380; 88305; J2371; J2704

== ENCOUNTER → 2023-10-30 00:10 | Outpatient (CLI) | payer OTHER, SELFPAY ==
--- NOTE | 2023-10-30 | DI.MRI_ITS ---
Exam(s) MR ABDOMEN WO/W EXAM: MR ABDOMEN WO/W CLINICAL HISTORY: LESION OF LIVER, K76.9 TECHNIQUE: Multiplanar multisequence MRI of the Abdomen was performed. CONTRAST MATERIAL: IV Contrast: 20 mL of Dotarem contrast administered. COMPARISON: CT CT ABDOMEN PELVIS W from 10/11/2023 FINDINGS: Liver: There is a well-circumscribed subcapsular lesion in the anterior aspect of the liver measuring 4.1 cm transverse by 1.4 cm AP. It is hyperintense on the T2 weighted images. It is very mildly hy pointense on the T1 weighted images. Following contrast administration on the arterial images the les ion is only faintly hypoechoic relative to the parenchyma. This is similar to the precontrast examina tion. Relative to the rest of the hepatic parenchyma, it is most hypointense on the venous phase imag es. Though it remains hypointense, it becomes less hypointense to the rest of the parenchyma on the d elayed images. Pancreas: Unremarkable. No evidence of a pancreatic mass. Gallbladder and Bile Ducts: Status post cholecystectomy. No biliary ductal dilatation. Adrenals: Unremarkable. Kidneys: The visualized portions of the kidneys are unremarkable. Spleen: Unremarkable. 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 Bowel: Unremarkable. No evidence of bowel obstruction or bowel wall thickening. Aorta: Unremarkable. Soft Tissues: Unremarkable. Bone: Unremarkable. Lymph Nodes: Unremarkable. IMPRESSION: Solitary subcapsular hepatic lesion as described above. This corresponds to the finding on the CT sca n from 10/11/2023. Differential considerations include an atypical hepatic adenoma or FNH. Neoplasm or metastasis cannot be entirely excluded. DATA REPOSITORY:
[2023-10-30] MEDS: Normal Saline - Diluent 50 ML VIAL 25 ML IJ (10:32)
[2023-10-30] MEDS: Gadoterate meglumine 20 ML VIAL IVP (10:33)
== END ==
PROVIDERS: PCP Nurse Practitioner Family; Visit Provider Nurse Practitioner Family
DX: K76.9 Liver disease, unspecified (principal)
CPT/HCPCS: 74183

== ENCOUNTER 2023-11-03 15:17 | Outpatient (REF) | payer OTHER, SELFPAY ==
[2023-11-03 19:31] LABS: C Diff PCR Negative (Negative)
[2023-11-07 16:05] LABS: Calprotectin <50.0 mcg/g
== END 2023-11-03 15:18 | disposition home or self-care (01) ==
LOC: NCHCN 15:17
PROVIDERS: PCP Nurse Practitioner Family; Visit Provider Nurse Practitioner Family
DX: R19.7 Diarrhea, unspecified (principal)
CPT/HCPCS: 87493; 83993

== ENCOUNTER 2024-06-01 02:40 | Outpatient (CLI) | payer OTHER, SELFPAY ==
[2024-06-01] MEDS: Gadoterate meglumine 20 ML VIAL IVP (08:54)
[2024-06-01] MEDS: Normal Saline - Diluent 50 ML VIAL IJ (08:55)
--- NOTE | 2024-06-01 09:30 | DI.MRI_ITS ---
Exam(s) MR ABDOMEN WO/W EXAM: MR ABDOMEN WO/W CLINICAL HISTORY: K76.9 Liver disease, unspecified, lesion of liver TECHNIQUE: Multiplanar multisequence MRI of the Abdomen was performed. CONTRAST MATERIAL: IV Contrast: 20 mL of Dotarem contrast administered. COMPARISON: CT CT ABDOMEN PELVIS W from 10/11/2023 MR MR ABDOMEN WO/W from 10/30/2023 FINDINGS: Lung bases: Unremarkable. Liver: There is again seen a subcapsular mass in the liver measuring 4 cm by 1.5 cm. The signal didier cteristics and enhancement pattern are unchanged. It remains hypointense to the parenchyma on the de layed images. No new hepatic lesions are seen. Pancreas: Unremarkable. No evidence of a pancreatic mass. Gallbladder and Bile Ducts: Status post cholecystectomy. No biliary ductal dilatation. Adrenals: Unremarkable. Kidneys: Unremarkable. There is no evidence of a renal mass or obstruction. Spleen: Unremarkable. 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 Bowel: There is no evidence of bowel obstruction or bowel wall thickening. There are few diverticula seen in the transverse colon but no evidence of acute diverticulitis. Aorta: No evidence of an aneurysm. Soft Tissues: Unremarkable. Bone: Unremarkable. Lymph Nodes: Unremarkable. IMPRESSION: Stable hepatic lesion. No new lesions are identified. Follow-up examination in 6 months is recommen ded to document stability of the lesion. DATA REPOSITORY:
== END 2024-06-01 03:00 ==
LOC: DI 02:40
PROVIDERS: PCP Nurse Practitioner Family; Visit Provider Nurse Practitioner Family
DX: K76.9 Liver disease, unspecified (principal)
CPT/HCPCS: 74183

== ENCOUNTER 2025-01-30 02:47 | Outpatient (CLI) | payer OTHER, SELFPAY ==
--- NOTE | 2025-01-30 | DI.MRI_ITS ---
Exam(s) MR ABDOMEN WO/W EXAM: MR ABDOMEN WO/W CLINICAL HISTORY: LIVER DISEASE K76.9 6 MO FU LIVER MASS TECHNIQUE: Multiplanar multisequence MRI of the Abdomen was performed. CONTRAST MATERIAL: IV Contrast: 20 mL of Dotarem contrast administered. COMPARISON: CT CT ABDOMEN PELVIS W from 10/11/2023 MR MR ABDOMEN WO/W from 10/30/2023 MR MR ABDOMEN WO/W from 06/01/2024 FINDINGS: Lung bases: Unremarkable. Liver: Stable size and appearance of smoothly marginated, benign-appearing lesion seen in the anterior, subcapsular location of the liver. There is again noted to be an elongated projection extending medially. There is no significant enhancement. No new liver lesions. Pancreas: Unremarkable. Gallbladder and Bile Ducts: No biliary dilatation. Status post cholecystectomy. Adrenals: Unremarkable. Kidneys: Unremarkable. Spleen: Unremarkable. Aorta: Unremarkable. Soft Tissues: Unremarkable. Bone: Unremarkable. Lymph Nodes: Unremarkable. Stomach and bowel: Unremarkable. Peritoneal cavity: Unremarkable. No evidence of ascites. IMPRESSION: Stable appearance of anterior liver lesion. No suspicious features. DATA REPOSITORY:
[2025-01-30] MEDS: Gadoterate meglumine 20 ML VIAL IVP (12:27)
[2025-01-30] MEDS: Normal Saline - Diluent 50 ML VIAL IJ (12:28)
== END 2025-01-30 03:07 ==
PROVIDERS: PCP Nurse Practitioner Family; Visit Provider Nurse Practitioner Family
DX: K76.9 Liver disease, unspecified (principal)
CPT/HCPCS: 74183